=== PATIENT | female | born 1960 | race Caucasian/White ===

== ENCOUNTER → 2017-03-02 | Outpatient (CLI) | payer BC ==
[~2017-03-02] MED LIST: ABAT250V INJ; ATOR20TA59 PO; AZAT50TA PO; BUTA1TAB9 PO; CETI10TA56 PO; CLOP75TA PO; CYAN10009 PO; CYCL-83 PO; ELET40TA PO; FLUT9.9S EA NOSTRIL; FOLI0.8T PO; GABA-305 PO; HYDR50TA48 PO; LISI-127 PO; LORA-204 PO; MECL-103 PO; METO50TA5 PO; MULT-806 PO; NITR0.4T39 SL; ONDA4TAB10 PO; OXCA300T18 PO; OXYC1TAB13 PO; PANT40TA25 PO; PRIM50TA30 PO; SERT-77 PO; ZOLP-109 PO
== END ==
LOC: WC.BC 08:04
DX: Z12.31 Encounter for screening mammogram for malignant neoplasm of breast (principal)
CPT/HCPCS: 77063; G0202

== ENCOUNTER → 2017-03-20 | Outpatient (CLI) | payer BC ==
--- NOTE | 2017-03-20 10:37 | DI ---
INDICATION: ITS.REASON: R05 COUGH PROCEDURE: CHEST 2-VIEWS UPRIGHT (PA \T\ LAT) Encounter: Initial COMPARISON: November 22, 2016 FINDINGS: The lungs are clear without evidence of focal abnormal airspace opacity. There is no pleural effusion or pneumothorax. The heart size, mediastinal contours and pulmonary vascularity are within normal limits. There is no significant skeletal abnormality. IMPRESSION: No acute cardiopulmonary disease. .
== END ==
LOC: IMA 10:10
PROVIDERS: ATTEND Family Medicine
DX: R05 Cough (principal)